=== PATIENT | male | born 1965 | race Caucasian/White ===

== ENCOUNTER 2018-11-11 20:45 | Emergency (ER) | payer BC ==
[~2018-11-11] VITALS: Ht 177.8 cm; Wt 101.6 kg
[~2018-11-11 20:45] MED LIST: ACET500C5 PO; ERYT1OIN6 BOTH EYES; HYDR-4011 PO
[2018-11-11 20:48] VITALS: Ht 177.8 cm; Wt 101.6 kg
[2018-11-11] MEDS ORDERED: HYDROCODONE/APAP (10/325) TAB PO ONE (21:30)
[2018-11-11] MEDS ORDERED: FLUORESCEIN STRIP BOTH EYES ONE (21:30)
[2018-11-11] MEDS ORDERED: TETRACAINE 0.5% 4 ML OPH BOTH EYES ONE (21:30)
[2018-11-11] MEDS ORDERED: NICARDipine HCL 30 MG CAPSULE PO ONE (21:30)
[2018-11-11] MEDS ORDERED: DIPHTH/TET/ACEL PERTUSS (ADULT) 0.5 ML VIAL IM* ONE (21:30)
[2018-11-11] MEDS ORDERED: ERYTHROMYCIN 1 GM OPH OINT BOTH EYES ONE (22:30)
[2018-11-11 22:41] VITALS: BP 182/105; PULSE 87; RESP 20
== END 2018-11-11 22:48 | disposition home or self-care (01) ==
LOC: E/R 20:45 → FTE 22:48
DX: T15.02XA Foreign body in cornea, left eye, initial encounter (principal); X58.XXXA Exposure to other specified factors, initial encounter; Y92.9 Unspecified place or not applicable; Z23 Encounter for immunization
CPT/HCPCS: 90471; 90715